=== PATIENT | female | born 1975 | race Caucasian/White ===

== ENCOUNTER 2016-12-05 07:30 | Inpatient (IN) | payer OTHER ==
[~2016-12-05] VITALS: Ht 174 cm; Wt 81.4 kg
[~2016-12-05 07:30] MED LIST: CITA20TA4 PO; SERO100T PO
[2016-12-07] MEDS ORDERED: CLON1TAB PO (17:02)
[2016-12-16] MEDS ORDERED: IBUP200C PO (13:25)
[2016-12-19 08:30] VITALS: BP 115/68; PULSE 80; RESP 16; TEMP 99.3; O2SAT 97
[2016-12-19] MEDS ORDERED: INSULIN HUMAN REGULAR 1,000 UNITS/10 ML VIAL SQ PRN (09:00)
[2016-12-19] MEDS ORDERED: ceFAZolin 1,000 MG/NS 100 ML IV SCH ×2 (09:00)
[2016-12-19] MEDS ORDERED: HEPARIN SODIUM - SQ 10,000 UNITS/ML VIAL SQ SCH (09:00)
[2016-12-19] MEDS ORDERED: METOPROLOL TARTRATE 25 MG TAB PO PRN (09:00)
[2016-12-19] MEDS ORDERED: LACTATED RINGER'S 1000 ML IV SCH (09:00)
[2016-12-19] MEDS ORDERED: SODIUM CHLORID 0.9% 500 ML IV SCH (09:00)
[2016-12-19] MEDS ORDERED: ONDANSETRON HCL 4 MG/2 ML VIAL IV PUSH ONE (12:00)
[2016-12-19] MEDS ORDERED: NEOSTIGMINE 3 MG/3 ML SYR IV ONE (12:00)
[2016-12-19] MEDS ORDERED: NORMOSOL R INJ 1,000 ML IV ONE (12:00)
[2016-12-19] MEDS ORDERED: PROPOFOL 200 MG/20 ML AMP IV ONE (12:00)
[2016-12-19] MEDS ORDERED: FAMOTIDINE 20 MG/2 ML VIAL ONE (13:24)
[2016-12-19] MEDS ORDERED: MIDAZOLAM HCL 2 MG/2 ML VIAL ONE ×2 (13:24→17:18)
[2016-12-19] MEDS ORDERED: SUGAMMADEX SODIUM 200 MG/2 ML VIAL IV PUSH ONE ×2 (13:30)
[2016-12-19] MEDS ORDERED: ACETAMINOPHEN 1000 MG/100 ML VIAL IV ONE (13:30)
[2016-12-19] MEDS ORDERED: ARTIFICIAL TEARS OPTH OINT 3.5 APPLIC/3.5 GM TUBO ONE (13:47)
--- NOTE | 2016-12-19 14:14 | EKG ---
Date Performed: 12/19/2016 Time Performed: 10:02:51 PTAGE: 41 years EKG: Sinus rhythm WITH FIRST DEGREE AV BLOCK LOW QRS VOLTAGE IN EXTREMITY LEADS ABNORMAL ECG NO PREVIOUS TRACING DOCTOR: Vikash Hall Interpretating Date/Time 12/19/2016 14:12:03
[2016-12-19] MEDS ORDERED: HYDROmorphone HCL PF 2 MG/ML VIAL ONE (16:06)
[2016-12-19] MEDS ORDERED: fentaNYL CITRATE 250 MCG/5 ML AMP ONE ×2 (16:57→17:19)
[2016-12-19] MEDS ORDERED: diphenhydrAMINE HCL 25 MG CAP PO PRN (17:00)
[2016-12-19] MEDS ORDERED: NALOXONE HCL 0.4 MG/ML AMP IV PRN (17:00)
[2016-12-19] MEDS ORDERED: SODIUM CHLORIDE 0.9% FLUSH 5 ML FLUSH FLUSH PRN ×2 (17:00)
[2016-12-19] MEDS ORDERED: oxyCODONE/ACETAMINOPHEN 5 MG/325 MG TAB PO PRN (17:00)
[2016-12-19] MEDS ORDERED: ONDANSETRON HCL 4 MG/2 ML VIAL IVP PRN (17:00)
[2016-12-19] MEDS ORDERED: DO NOT ADM ANY ANTICOAGULANT DRUGS XX PRN (17:15)
[2016-12-19] MEDS ORDERED: *morphine SULFATE 8 MG/ML PERIprocedure ONLY ONE ×2 (17:16→17:26)
[2016-12-19] MEDS ORDERED: *diphenhydrAMINE HCL 50 MG/ML VIAL PERIprocedural Use ONLY ONE (17:21)
[2016-12-19] MEDS: D5-1/2 NS + KCL 20 MEQ INJ 1,000 ML IV SCH (17:25)
[2016-12-19] MEDS: MORPHINE SULFATE 30 MG/30 ML PCA IV SCH (17:26)
[2016-12-19] MEDS ORDERED: *ONDANSETRON 4 MG VIAL PERIprocedural Use ONLY ONE (17:27)
[2016-12-19] MEDS: clonazePAM 1 MG TAB PO SCH (17:47)
[2016-12-19] MEDS ORDERED: *HYDROmorphone PF 1 MG VIAL PERIprocedural Use ONLY ONE ×2 (17:55→18:10)
[2016-12-19 19:44] VITALS: BP 124/74; PULSE 72; RESP 18; TEMP 97.5; O2SAT 98
[2016-12-19] MEDS: QUEtiapine FUMARATE 100 MG TAB PO SCH (20:24)
[2016-12-19] MEDS: SODIUM CHLORIDE 0.9% FLUSH 5 ML FLUSH FLUSH SCH (20:31)
[2016-12-19 20:57] VITALS: O2SAT 99
[2016-12-19] MEDS ORDERED: SODIUM CHLORIDE 0.9% FLUSH 5 ML FLUSH FLUSH SCH (21:00)
[2016-12-19] MEDS: PCA - TOTAL MG MORPHINE DELIVERED PER SHIFT SCH (23:03)
[2016-12-20] VITALS (7 sets, daily range): BP systolic 89–141; BP diastolic 53–71; PULSE 68–82; RESP 16–20; TEMP 96.5–100.3; O2SAT 95–100
[2016-12-20] MEDS: D5-1/2 NS + KCL 20 MEQ INJ 1,000 ML IV SCH ×4 (03:41→23:03)
[2016-12-20] MEDS: PCA - TOTAL MG MORPHINE DELIVERED PER SHIFT SCH ×3 (05:18→22:00)
[2016-12-20] MEDS: MORPHINE SULFATE 30 MG/30 ML PCA IV SCH (07:03)
[2016-12-20 07:29] LABS: BASOPHIL % 0.3 % (0.0-2.0); HEMATOCRIT 34.7 % (35.0-46.0); HEMO FLAGS DIFF FINAL; LYMPH % 20.4 % (9.0-44.0); LYMPHOCYTE # 1.2 TH/MM3 (1.0-4.8); MEAN CELL VOLUME 90.6 FL (80.0-100.0); MEAN CORPUSCULAR HEMOGLOBIN 30.5 PG (27.0-34.0); MEAN CORPUSCULAR HGB CONC 33.6 % (32.0-36.0); MONO % 14.6 % (0.0-8.0); NEUT % 64.7 % (16.0-70.0); PLATELET COUNT 174 TH/MM3 (150-450); RED BLOOD COUNT 3.83 MIL/MM3 (4.00-5.30); RED CELL DISTRIBUTION WIDTH 14.1 % (11.6-17.2); WHITE BLOOD COUNT 6.1 TH/MM3 (4.0-11.0)
[2016-12-20 08:00] LABS: BICARBONATE 25.6 MEQ/L (21.0-32.0); POTASSIUM 3.5 MEQ/L (3.5-5.1)
[2016-12-20] MEDS ORDERED: OXYC1TAB63 PO (08:37)
[2016-12-20] MEDS: QUEtiapine FUMARATE 100 MG TAB PO SCH ×2 (08:45→20:18)
[2016-12-20] MEDS: CITALOPRAM HYDROBROMIDE 20 MG TAB PO SCH (08:45)
[2016-12-20] MEDS: clonazePAM 1 MG TAB PO SCH ×3 (08:45→14:56)
[2016-12-20] MEDS: oxyCODONE/ACETAMINOPHEN 5 MG/325 MG TAB PO PRN ×3 (08:45→19:31)
[2016-12-20] MEDS: SODIUM CHLORIDE 0.9% FLUSH 5 ML FLUSH FLUSH SCH ×2 (08:45→20:18)
[2016-12-20] MEDS ORDERED: PNEUMOCOCCAL POLYVALENT INJ 25 MCG/0.5 ML SYR IM ONE (09:00)
[2016-12-20] MEDS ORDERED: INFLUENZA VIRUS VACCINE (QUADRIVALENT) 0.5 ML SYR IM ONE (09:00)
[2016-12-20] MEDS: KETOROLAC TROMETHAMINE 30 MG/ML (IVP) VIAL IV PUSH SCH ×3 (10:12→23:00)
[2016-12-20] MEDS: CIPROFLOXACIN 250 MG TAB PO SCH (12:14)
[2016-12-21] VITALS (7 sets, daily range): BP systolic 85–107; BP diastolic 49–69; PULSE 60–76; RESP 16–18; TEMP 97.6–98.5; O2SAT 93–97
[2016-12-21] MEDS: oxyCODONE/ACETAMINOPHEN 5 MG/325 MG TAB PO PRN ×6 (01:41→23:54)
[2016-12-21] MEDS: PCA - TOTAL MG MORPHINE DELIVERED PER SHIFT SCH (04:24)
[2016-12-21] MEDS: KETOROLAC TROMETHAMINE 30 MG/ML (IVP) VIAL IV PUSH SCH ×4 (04:45→22:07)
[2016-12-21] MEDS: D5-1/2 NS + KCL 20 MEQ INJ 1,000 ML IV SCH (07:05)
--- NOTE | 2016-12-21 07:56 | PD.ONC.PN ---
Subjective Subjective Remarks POD #2 pt is in bed c/o pain to left groin pain does not radiate she has been OOB to chair but not ambulated any further than to the chair. denies any n/v RN tells me that she was very sedated yesterday and there was a concern if she was taking extra Clonazepam from home, d/t the sedation her COMPONENT DESIGN ENGINEER was stopped and she has been taking Percocet and has scheduled Toradol that she has been getting every 6 hours. Objective Data Date Time Temp Pulse Resp B/P Pulse Ox O2 Delivery O2 Flow Rate FiO2 12/21/16 04:45 98.2 67 16 95/55 94 12/21/16 04:24 16 12/21/16 00:00 97.6 64 16 93/57 94 12/20/16 22:00 16 12/20/16 20:00 96.5 68 16 90/63 97 12/20/16 19:48 95 21 12/20/16 16:00 97.6 82 18 89/53 95 12/20/16 09:28 97 21 12/20/16 08:00 98.4 80 20 141/71 96 12/21/16 12/21/16 12/21/16 07:00 15:00 23:00 Intake Total 1190 ml Output Total 375 ml Balance 815 ml Result Diagram: 12/20/1670412/20/16704 Administered Medications Medications (Trade) Dose Ordered Sig/Mustapha Route PRN Reason Start Time Stop Time Status Last Admin Dose Admin Citalopram Hydrobromide (CeleXA) 20 mg DAILY PO 12/20/16 09:00 12/20/16 08:45 Clonazepam (KlonoPIN) 1 mg TID PO 12/19/16 18:00 12/20/16 14:56 Quetiapine Fumarate 100 mg 100 mg BID PO 12/19/16 21:00 12/20/16 20:18 Potassium Chloride/Dextrose/ Sod Cl (D5-1/2 NS + KCl 20 Meq Inj) 1,000 ml @ 125 mls/hr Q8H IV 12/19/16 17:00 12/21/16 07:05 Oxycodone/ Acetaminophen (Percocet 5-325 Mg) 2 tab Q4H PRN PO PAIN SCALE 6 TO 10 12/19/16 17:00 12/21/16 07:07 Ondansetron HCl (Zofran Inj) 8 mg Q8H PRN IVP NAUSEA OR VOMITING 12/19/16 17:00 12/20/16 07:10 IV Flush (NS Flush) 2 ml BID FLUSH 12/19/16 21:00 12/20/16 20:18 Morphine Sulfate (Morphine 1 Mg/ ml COMPONENT DESIGN ENGINEER) 30 mg UNSCH IV 12/19/16 17:00 12/20/16 07:03 COMPONENT DESIGN ENGINEER Dosage Infused (Pha) 1 Q8HR .XX 12/19/16 22:00 12/21/16 04:24 Ciprofloxacin (Cipro) 250 mg DAILY PO 12/20/16 10:00 12/20/16 12:14 Ketorolac Tromethamine (Toradol Inj) 30 mg Q6H IV PUSH 12/20/16 10:00 12/22/16 09:59 12/21/16 04:45 Objective Remarks GENERAL: Well-nourished, well-developed patient. SKIN: Warm and dry. HEAD: Normocephalic. EYES: No scleral icterus. No injection or drainage. CARDIOVASCULAR: Regular rate and rhythm without murmurs. RESPIRATORY: Breath sounds equal bilaterally. No accessory muscle use. GASTROINTESTINAL: Abdomen soft, non-tender, nondistended. dressing is C/D/I EXTREMITIES: with SCDs MUSCULOSKELETAL: Adequate muscle tone. NEUROLOGICAL: No obvious focal deficit. Awake, alert, and oriented x3. Assessment/Plan Problem List: (1) Menorrhagia Status: Resolved Plan: POD #2 s/p X lap STEF with bilat S&O D/C COMPONENT DESIGN ENGINEER today and continue with Percocet PRN and scheduled Toradol OOB to ambulate TID today and to chair lacy to leg bag and instructions for use before discharge will go home with cipro 250mg daily regular diet anticipate D/C home tomorrow. Jose Fraser Dec 21, 2016 07:56
[2016-12-21] MEDS: QUEtiapine FUMARATE 100 MG TAB PO SCH ×2 (08:29→20:56)
[2016-12-21] MEDS: clonazePAM 1 MG TAB PO SCH ×3 (08:29→19:14)
[2016-12-21] MEDS: CIPROFLOXACIN 250 MG TAB PO SCH (08:29)
[2016-12-21] MEDS: CITALOPRAM HYDROBROMIDE 20 MG TAB PO SCH (08:29)
[2016-12-21] MEDS: SODIUM CHLORIDE 0.9% FLUSH 5 ML FLUSH FLUSH SCH ×2 (08:30→20:56)
[2016-12-21] MEDS: NICOTINE 21 MG/24 HR PATCH TD SCH (14:05)
[2016-12-22] VITALS: BP 107/65; PULSE 61; RESP 16; TEMP 97.4; O2SAT 97
[2016-12-22 04:00] VITALS: BP 117/75; PULSE 63; RESP 16; TEMP 98.3; O2SAT 95
[2016-12-22] MEDS: KETOROLAC TROMETHAMINE 30 MG/ML (IVP) VIAL IV PUSH SCH (04:03)
[2016-12-22 08:00] VITALS: BP 117/84; PULSE 68; RESP 16; TEMP 97.5; O2SAT 95
[2016-12-22] MEDS: CITALOPRAM HYDROBROMIDE 20 MG TAB PO SCH (08:25)
[2016-12-22] MEDS: clonazePAM 1 MG TAB PO SCH ×2 (08:25→13:02)
[2016-12-22] MEDS: CIPROFLOXACIN 250 MG TAB PO SCH (08:25)
[2016-12-22] MEDS: QUEtiapine FUMARATE 100 MG TAB PO SCH (08:25)
[2016-12-22] MEDS: oxyCODONE/ACETAMINOPHEN 5 MG/325 MG TAB PO PRN ×2 (08:25→13:02)
[2016-12-22] MEDS: SODIUM CHLORIDE 0.9% FLUSH 5 ML FLUSH FLUSH SCH (08:26)
[2016-12-22] MEDS: NICOTINE 21 MG/24 HR PATCH TD SCH (08:27)
[2016-12-22 08:54] VITALS: O2SAT 96
[2016-12-22] MEDS ORDERED: REMOVE OLD NICOTINE PATCH TD SCH (09:00)
[2016-12-22] MEDS ORDERED: CIPR250T52 PO (11:55)
[2016-12-22 12:00] VITALS: BP 95/66; PULSE 75; RESP 16; TEMP 97.7; O2SAT 97
--- NOTE | 2016-12-25 21:51 | MD ---
cc: DARIELA JOHNS MD, KELLY L. MD ADMISSION DATE: 12/19/2016 DISCHARGE DATE: 12/22/2016 PROCEDURE 12/19/2016, exploratory laparotomy, total abdominal hysterectomy, bilateral salpingo-oophorectomy. DIAGNOSIS Cervical carcinoma in situ. HOSPITAL COURSE She has done reasonably well during the postop recovery. By postop day #3 she is tolerating oral intake. She is ambulating without assistance. She is moving flatus through. She has some baseline anxiety, pain control issues but are adequately under control as she continues her regular medication and pain medication. OBJECTIVE Ins and outs in the last 24 hours 2067/1550. No new labs. Her early postop labs H&H 11.7 and 34.7. PHYSICAL EXAMINATION VITAL SIGNS: On exam she is afebrile, pulse 60-68, respirations 16-18, blood pressure 99-117 over 68-84, O2 saturations greater than or equal to 95%. GENERAL: She is alert, oriented x3 in no acute distress. A little bit anxious, a bit uncomfortable consistent with surgery. No other significant problems. LUNGS: Clear except for mild rales at the bases. CARDIOVASCULAR: Regular rate and rhythm. ABDOMEN: Nondistended. The incision dressing is clean and dry. GYNECOLOGIC: No bleeding. ASSESSMENT Postoperative day #3 status post exploratory laparotomy, total abdominal hysterectomy, bilateral salpingo-oophorectomy, progressing satisfactorily in the postop period. Findings, activities, restrictions reviewed. Questions were answered and she feels as though she is ready for discharge to home. PLAN Therefore anticipate discharge to home today. She is to resume her prior medications. She also knows to continue the indwelling Wick catheter. It will be attached to the leg bag because of some oversewing of the bladder during surgery. She will keep that in for a week. She is to contact our office to schedule follow up in one week for Wick catheter removal and postop check. Our office number is again made available. She is to continue once daily, Ciprofloxacin for urinary tract infection prophylaxis, and she has our office number should she have any questions or problems between now the time of scheduled followup. Activities and restrictions are reviewed. She expressed good understanding and agrees. MD OSMIN Arellano/KK /11:59 AM /9:43 PM
--- NOTE | 2016-12-26 06:05 | MP ---
cc: DARIELA JOHNS MD, KELLY L. MD DATE OF PROCEDURE 12/19/2016 PREOPERATIVE DIAGNOSIS Cervical carcinoma in situ. SECONDARY DIAGNOSES Pelvic pain. Menometrorrhagia. POSTOPERATIVE DIAGNOSES 1. Cervical carcinoma in situ. 2. Pelvic pain. 3. Menometrorrhagia. 4. Dense pelvic adhesions. 5. Possible endometriosis. PROCEDURE Exploratory laparotomy, total abdominal hysterectomy, bilateral salpingo-oophorectomy, extensive lysis of adhesions. 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 ANESTHESIA General endotracheal anesthesia. ESTIMATED BLOOD LOSS 300 cc. IV FLUIDS 2600 cc. URINE OUTPUT 600 cc. HISTORY A 41-year-old female with a history of high-grade dysplasia, cervical carcinoma in situ, healed up from recent conization. Counseled regarding options of continued periodic surveillance versus hysterectomy. She is troubled by painful long periods that are debilitating in addition to the concern regarding potential development of cancer and she is interested in definitive surgery. FINDINGS Uterus was normal in size. The tubes and ovaries grossly appeared normal. There were some filmy adhesions adhering the adnexa to the pelvic sidewall and some filmy adhesions in the posterior cul-de-sac. There were more dense adhesions down in the region of the cervix where the posterior peritoneum and the bladder were densely adherent to the lower uterine segment and cervix. No overt adenopathy or intraperitoneal implants. STATEMENT OF COMPLEXITY The complexity was increased with additional extensive time spent lysing adhesions due to the dense, fixed adhesions around the cervix and the lower pelvis. Modifier should be applied accordingly. PROCEDURE The patient was taken to the operating room, placed in dorsal lithotomy position. After general endotracheal anesthesia was administered, a time-out was undertaken. The patient was identified by sight recognition and hospital ID bracelet. The proposed procedure was reviewed and confirmed. She was prepped and draped in sterile fashion, a Wick catheter placed in the bladder. Pfannenstiel skin incision made, carried down to level of the fascia. The fascia was extended in a transverse fashion and was dissected off the ventral surface of the rectus muscles toward the umbilicus and down toward the symphysis. The rectus muscles were in midline. The peritoneum was entered. Lap pads and Bookwalter retractor were used to assist in surgical exposure, the right round ligament doubly suture ligated, transected. The anterior and posterior leafs of the broad ligament were opened. Adhesions were lysed to mobilize the right tube and ovary. The right ureter was identified. The right infundibulopelvic ligament was isolated. The intervening peritoneum was opened. The infundibulopelvic ligament was doubly clamped, cut and doubly suture ligated. Time was spent lysing adhesions and freeing the peritoneum off the posterior aspect of the cervix on the right side and the right vesicouterine peritoneum was dissected off the lower uterine segment and cervix with sharp dissection. There was some disruption of the paravesical, adipose tissue and peritoneum, but without cystotomy. This area was reinforced with running 3-0 Vicryl suture. The right uterine vessels were isolated, clamped, cut and doubly suture ligated. The paracervical, cardinal and uterosacral ligaments were isolated, clamped, cut and suture ligated. Attention was directed toward the left side where the left round ligament was isolated, doubly suture ligated transected. The anterior and posterior leafs of the broad ligament were opened. Adhesions were lysed to mobilize the left tube and ovary. The left ureter was identified. The left infundibulopelvic ligament was isolated, the intervening peritoneum was opened. The infundibulopelvic ligament was doubly clamped, cut and doubly suture ligated. Sharp dissection was used to free the cul-de-sac and lyse adhesions in the posterior aspect of the cervix on the left and the left vesicouterine peritoneum was dissected off the lower uterine segment and cervix. With sharp dissection we lysed adhesions until the bladder flap could be mobilized beyond the level of the cervix. The left uterine vessels were skeletonized, clamped, cut, doubly suture and the cardinal, paracervical and uterosacral ligaments were clamped, cut and suture-ligated. Curved Fink clamps were placed at the lateral vaginal angles and the specimen was removed by sharp dissection below the cervix, the cervix from the upper vagina. The specimen was inspected and the entire cervix noted to be removed. The specimen consisting of uterus, cervix, bilateral tubes and ovaries was sent for permanent histopathologic analysis. The vaginal cuff was closed with 0 Vicryl sutures in an interrupted [id number] fashion. The lateral corners were secured first incorporating the edge of the uterosacral ligament, posterior peritoneum and tied securely in [id number] 0 Vicryl sutures used to close the cuff which rendered it completely hemostatic, well-supported. There was a good margin between the vaginal cuff suture line and the edge of the bladder. There was good peristalsis of ureters bilaterally. Small bleeders were rendered hemostatic with bipolar cautery. The pelvis was thoroughly irrigated. To assist in continued hemostasis hemostatic Pito powder was placed in the vaginal cuff and lateral pelvic sidewalls. The Bookwalter retractor was disassembled as each of the lap pads were removed. Visual and manual inspection confirmed there were no remaining foreign objects in the peritoneal cavity. Preliminary counts were correct and attention was directed toward closing. The peritoneum was closed with a running 2-0 Vicryl suture and the fascia was closed with running 0 looped PDS starting at the lateral edges, meeting in the midpoint where the sutures were tied and the knot was buried below the fascia. The subcutaneous tissue was irrigated, Clement's fascia reapproximated with interrupted 2-0 Vicryl sutures and skin edges closed with a running 3-0 Vicryl subcuticular. Steri-Strips and dry sterile dressing were placed over the incision. Pelvic exam confirmed there were no remaining foreign objects in the vagina. Final counts were correct. She was returned to dorsal supine position and was pending reversal of anesthesia when I left the operating room to precede her to the Post Anesthesia Care Unit. MD OSMIN Arellano/YUE /5:19 AM /5:51 AM
[2017-01-31] MEDS ORDERED: CLON1TAB PO (07:17)
== END 2016-12-22 14:00 | disposition home or self-care (01) | DRG 741 ==
LOC: HSDI 12-19 08:18 → HOCA 12-19 18:46
PROVIDERS: ADMIT Obstetrics & Gynecology Gynecologic Oncology; ATTEND Obstetrics & Gynecology Gynecologic Oncology
PROC: 0UTC0ZZ Resection of Cervix, Open Approach (ICD-10-PCS; 2016-12-19)
PROC: 0UT70ZZ Resection of Bilateral Fallopian Tubes, Open Approach (ICD-10-PCS; 2016-12-19)
PROC: 0UT20ZZ Resection of Bilateral Ovaries, Open Approach (ICD-10-PCS; 2016-12-19)
PROC: 0UT90ZZ Resection of Uterus, Open Approach (ICD-10-PCS; principal; 2016-12-19 13:47)
DX: D06.9 Carcinoma in situ of cervix, unspecified (principal); F41.9 Anxiety disorder, unspecified; N80.0 Endometriosis of uterus; N73.6 Female pelvic peritoneal adhesions (postinfective); N92.1 Excessive and frequent menstruation with irregular cycle; Z23 Encounter for immunization
CPT/HCPCS: 80048; 85025; 86850; 86900; 86901; 86920; 88307; 88309; 88331; 90686; 90732; 93005; 94150; J0131; J0690; J1170; J1200; J1644; J1885; J2250; J2270; J2405; J2710; J3010; J3480; J7120; Q2038